=== PATIENT | female | born 2005 | race Caucasian/White ===

== ENCOUNTER 2025-04-01 16:50 | Emergency (ER) | payer MEDICAID ==
[~2025-04-01] VITALS: Ht 152.4 cm; Wt 52.2 kg
[2025-04-01 18:08] VITALS: BP 122/76; TEMP 97.8; O2SAT 99
== END 2025-04-01 18:09 | disposition home or self-care (01) ==
LOC: ER 16:50
DX: S92.351A Displaced fracture of fifth metatarsal bone, right foot, initial encounter for closed fracture (principal); X58.XXXA Exposure to other specified factors, initial encounter; Y93.67 Activity, basketball; Y92.89 Other specified places as the place of occurrence of the external cause; Y99.8 Other external cause status
CPT/HCPCS: 73630; A4606; A4663